=== PATIENT | male | born 1960 | race Caucasian/White ===

== ENCOUNTER → 2023-04-09 | Outpatient (CLI) | payer MEDICAID ==
[~2023-04-09] MED LIST: CLOP75TA28 PO; ENAL5TAB10 PO; FURO20TA3 PO; GABA300C11 OR; HYDR-531 PO; ISOS1TAB28 PO; LEVAAER IN; MORP1TAB12 PO; ONDA-144 PO; SIMV-8 PO
== END | disposition home or self-care (01) ==
LOC: LAB 09:55
PROVIDERS: ATTEND Urology
DX: R97.20 Elevated prostate specific antigen [PSA] (principal)
CPT/HCPCS: 84153

== ENCOUNTER 2024-09-01 08:03 | Day surgery (SDC) | payer MEDICARE, MEDICAID ==
[2024-08-30 09:29] LABS: Urine Bacteria None Seen /hpf (None Seen)
[2024-08-30 09:46] LABS: Basophils # (auto) 0.1 10 ^3/uL (0-0.2); Basophils % (auto) 0.8 % (0.0-2.0); Eosinophils # (auto) 0.1 10 ^3/uL (0-0.8); Eosinophils % (auto) 1.7 % (0.0-7.0); Hematocrit 41.2 % (41.0-53.0); Hemoglobin 13.8 g/dL (13.5-17.5); Lymphocytes # (auto) 1.6 10 ^3/uL (0.4-5.4); Lymphocytes % (auto) 20.5 % (10.0-50.0); Mean Corpuscular Hemoglobin 32.6 pg (28.0-32.0); Mean Corpuscular Hgb Conc. 33.6 g/dL (32.0-36.0); Mean Corpuscular Volume 96.8 fL (80.0-100.0); Monocytes # (auto) 0.7 10 ^3/uL (0-1.3); Monocytes % (auto) 8.5 % (0.0-12.0); Neutrophils # (auto) 5.5 10 ^3/uL (1.6-8.6); Neutrophils % (auto) 68.5 % (37.0-80.0); Platelet Count (auto) 251 10^3/uL (140-450); Red Blood Cells 4.25 10^6/uL (4.5-5.90)
[2024-08-30 09:58] LABS: Urine Blood 1+ /uL (Negative); Urine Clarity Clear (Clear); Urine Color Light-Yellow (Yellow); Urine Protein, UAD Negative (Negative); Urine Specific Gravity 1.019 (1.001-1.035); Urine Urobilinogen Normal (Negative); Urine WBC 7 /hpf (0 - 3)
[2024-08-30 10:19] LABS: Alanine Aminotransferase 16 U/L (7-40); Albumin 4.3 g/dL (3.2-4.8); Alkaline Phosphatase 69 U/L (46-116); Anion Gap 4 (5-15); Aspartate Aminotransferase 12 U/L (13-40); BUN/Creatinine Ratio 11.7 (10.0-20.0); Blood Urea Nitrogen 12 mg/dL (9-23); Calcium 9.3 mg/dL (8.7-10.4); Carbon Dioxide 28 mmol/L (20-31); Chloride 104 mmol/L (98-107); Glucose 98 mg/dL (74-106); Potassium 5.3 mmol/L (3.5-5.1); Sodium 136 mmol/L (136-145)
[2024-08-30 10:20] LABS: Bilirubin, Total 0.4 mg/dL (0.2-1.0); Total Protein 7.2 g/dL (5.7-8.2)
[2024-08-30 11:06] LABS: Partial Thromboplastin Time 29.6 SEC (24.5-34.5); Prothrombin Time 10.6 sec (9.3-11.8)
[~2024-09-01] VITALS: Ht 177.8 cm; Wt 122.5 kg
[~2024-09-01 08:03] MED LIST changes: +BACL20TA PO; +CARV6.2551 PO; +DOCU-94 PO; -ENAL5TAB10 PO; -FURO20TA3 PO; +FURO40TA4 PO; +GABA-1254 OR; -GABA300C11 OR; -ISOS1TAB28 PO; -LEVAAER IN; +LEVE500T3 PO; +MAGN241.4 PO; +MECL1TAB42 PO; -MORP1TAB12 PO; -ONDA-144 PO; +OXY10CRT PO; +RANO500T3 PO; +ROSU40TA47 PO; -SIMV-8 PO; +SPIR25TA8 PO
[2024-09-01] MEDS ORDERED: PROPOFOL 10 MG/ML 20 ML IV ONE (09:19)
[2024-09-01] MEDS ORDERED: fentaNYL CITRATE 100 MCG/2 ML VL ONE (09:19)
[2024-09-01 09:51] VITALS: PULSE 54; RESP 16; TEMP 99.3; O2SAT 97
[2024-09-01 10:06] VITALS: BP 131/76; PULSE 56; RESP 17; O2SAT 96
== END 2024-09-01 10:29 | disposition home or self-care (01) ==
LOC: GI 08:03
PROVIDERS: ATTEND Internal Medicine Gastroenterology
DX: R10.9 Unspecified abdominal pain (principal); K63.5 Polyp of colon; K44.9 Diaphragmatic hernia without obstruction or gangrene; K57.30 Diverticulosis of large intestine without perforation or abscess without bleeding; K64.8 Other hemorrhoids; I11.0 Hypertensive heart disease with heart failure; I50.9 Heart failure, unspecified; J44.9 Chronic obstructive pulmonary disease, unspecified; I25.10 Atherosclerotic heart disease of native coronary artery without angina pectoris; E78.5 Hyperlipidemia, unspecified; F17.210 Nicotine dependence, cigarettes, uncomplicated; E66.01 Morbid (severe) obesity due to excess calories; Z82.49 Family history of ischemic heart disease and other diseases of the circulatory system; Z79.01 Long term (current) use of anticoagulants; Z98.42 Cataract extraction status, left eye; Z68.38 Body mass index [BMI] 38.0-38.9, adult
CPT/HCPCS: 36415; 43235; 45380; 80053; 81001; 85025; 85610; 85730; 88305; J2704; J3010; J7030

== ENCOUNTER 2025-05-09 07:22 | Day surgery (SDC) | payer MEDICARE, MEDICAID ==
[~2025-05-09] VITALS: Ht 177.8 cm; Wt 129.3 kg
[~2025-05-09 07:22] MED LIST changes: -SPIR25TA8 PO
[2025-05-09] MEDS: IODIXANOL 320MG/ML 100ML BTL IV ONE ×2 (08:34→09:56)
[2025-05-09] MEDS: ANGIOMAX 250 MG VIAL IV ONE ×2 (08:41→10:33)
[2025-05-09] MEDS: VERAPAMIL 2.5MG/ML INJ 2ML VIAL IV ONE (08:42)
[2025-05-09] MEDS: MIDAZOLAM HCL 2MG/2ML 2ml VIAL (1mg/ml) ONE (08:42)
[2025-05-09] MEDS: fentaNYL CITRATE 100 MCG/2 ML VL ONE (08:42)
[2025-05-09] MEDS: HEPARIN SODIUM (PORCINE) 5000 UNITS/ML 1ML VIAL ONE (08:42)
[2025-05-09] MEDS: LIDOCAINE 2%HCL (LOCAL ANESTH.) INJ 20ML MDV ONE (08:43)
[2025-05-09] MEDS: SODIUM CHL 0.9% 50 ML ONE ×2 (08:43→10:33)
[2025-05-09 10:20] VITALS: BP 109/39; PULSE 59; RESP 18; TEMP 97.5; O2SAT 98
[2025-05-09] MEDS: ASPirin 325 MG TAB ONE (10:32)
[2025-05-09] MEDS: CLOPIDOGREL BISULFATE 75 MG TAB ONE (10:33)
[2025-05-09 10:35] VITALS: BP 109/56; PULSE 61; RESP 16; O2SAT 97
--- NOTE | 2025-05-09 10:39 | DVHOP2 ---
Operative Report Procedures performed: Left heart catheterization and bilateral coronary angiogram PCI (drug-eluting stent deployment) of obtuse marginal Moderate sedation lasting more than 30 minutes Diagnosis: Left dominant coronary system Patent stents in LAD OM2 was a large size caliber vessel with 80% ostial disease (status post PCI/drug-eluting stent deployment) LVEF of 60% with mildly increased LVEDP (17 mm Hg) Cardiac suggestion for management: Dual antiplatelet therapy (loaded with aspirin/Plavix) for at least 1 year High potency statin, beta ashley and ARB versus JJ inhibitor Optimized medical therapy Lifestyle and risk factor modifications Findings: LVEF: 60% LVEDP: 17 mm Hg There was no transaortic valve pressure gradient Left main: Left main was coming off the left sinus of Valsalva. There was no angiographic evidence of disease in left main. LAD: LAD was coming off the left main. Proximal LAD had patent stent with no in-stent stenosis. Mid LAD also had patent stent with no in stent stenosis. Between proximal LAD stent and mid LAD stent, there was a section without stent which itself was somehow ectatic. D1 was medium-sized. D2 and D3 were small- sized. Other portions of LAD and branches revealed mild diffuse disease. LCX: LCX was a large caliber vessel which came off the left main. It was the dominant vessel and provided left posterolateral branch and left PDA. OM1 was a small caliber vessel. OM2 was a large caliber branching vessel. Ostium of OM2 had 80% focal lesion. Left posterolateral branch was a medium-sized vessel with mild disease. Left PDA was a moderate-sized vessel with mild diffuse disease. Ostium of LCX itself had up to 40% lesion. Other portions of LCX and branches revealed mild diffuse disease. RCA: RCA was coming off the right sinus of Valsalva. It was a small- caliber/sized vessel and was not dominant. Presentation: Patient is a 64-year-old gentleman who presented with dyspnea on exertion and chest pain to the office. Past medical history includes hypertension, hyperlipidemia, diabetes mellitus, syncope, palpitations and history of coronary artery disease (status post PCI). He smokes marijuana and cigarettes. Echocardiogram of August 2023 revealed ejection fraction of 55- 60%, mild concentric left ventricular hypertrophy, mild left atrial enlargement, trace MR and mild tricuspid regurgitation. Right ventricular systolic pressure was less than 35 mm Hg. Nuclear stress test of August 2023 was abnormal. Patient was sent for cardiac catheterization. 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 He was prepped and draped in sterile fashion. Left radial artery was used for access site. 1 mg of Versed and 25 mcg of fentanyl were used for moderate sedation (lasting more than 30 minutes). Using Seldinger technique, the left radial artery was accessed and a 6 [place] slender sheath was inserted into it. 2.5 mg of verapamil and 100 mcg of nitroglycerin were given as a cocktail into the left radial sheath. 5000 units of heparin was given peripherally. A 6 [place] JL4 diagnostic catheter was used to perform left coronary angiography. A 6 [place] JR4 diagnostic catheter was used to perform right coronary angiography. A 6 [place] pigtail was used to perform left heart catheterization (obtaining pressures and performing left ventriculography). We did recognize the significant disease (80%) in the ostium of the 2nd obtuse marginal and decided to proceed with intervention. Patient was started on Angiomax. A 6 [place] XB 3.5 guiding catheter was used to access the left coronary system. Run-through wire was used to cross the lesion. A 2.5 x 10 compliant balloon was used for predilatation. At this point we decided to proceed with deploying a stent. A 2.5 x 12 drug-eluting stent was deployed across the lesion successfully (inflated to 16 atmosphere and practically making the stent 2.7 in size). Repeat angiography revealed a well deployed stent. It is of note that prior to intervention, TEJINDER flow into RCA and branches including 2nd obtuse marginal was TEJINDER 3 flow. Post intervention, TEJINDER flow remained TEJINDER 3 flow. Remaining disease in obtuse marginal was 0%. Patient tolerated the procedure with no complication. There was no dissection/hematoma/perforation. Total bleeding was less than 10 mL. Right radial artery access site was managed by deploying a TR band Fluoroscopy time: 10.9 minutes contrast: 160 mL of BABAK Cruz MD May 09, 2025 10:39
[2025-05-09 11:20] VITALS: BP 93/59; PULSE 61; RESP 20; O2SAT 93
[2025-05-09 11:35] VITALS: BP 105/63; PULSE 64; RESP 19; O2SAT 94
[2025-05-09 12:08] VITALS: BP 107/53; PULSE 64; RESP 19; O2SAT 96
== END 2025-05-09 12:29 | disposition home or self-care (01) ==
LOC: CATH 07:22
PROVIDERS: ATTEND Internal Medicine Cardiovascular Disease
DX: I25.10 Atherosclerotic heart disease of native coronary artery without angina pectoris (principal); R94.39 Abnormal result of other cardiovascular function study; I10 Essential (primary) hypertension; I07.1 Rheumatic tricuspid insufficiency; E11.9 Type 2 diabetes mellitus without complications; E78.5 Hyperlipidemia, unspecified; F12.90 Cannabis use, unspecified, uncomplicated; F17.210 Nicotine dependence, cigarettes, uncomplicated; Z95.5 Presence of coronary angioplasty implant and graft
CPT/HCPCS: 0523T; 93458; C1725; C1769; C1874; C1887; C1894; C9600; J0583; J1644; J2250; J3010; Q9967; 99152; 99153